=== PATIENT | male | born 1955 | race Caucasian/White ===

== ENCOUNTER 2016-12-06 16:49 | Observation (INO) | payer MEDICARE, OTHER ==
--- NOTE | ~2016-12-06 | OP ---
Record Of Operation [facility] [address] [place]. [address] NAME: CAIO ALMONTE : 53 STATUS : DIS Shira PAT#: [id number] AGE: 61 ADM/REG DATE : 12/06/16 MR#: [id number] REPORT SERV DATE: 12/08/16 DICTATED BY: JOEL NARAYANAN DATE: 12/08/16 REPORT STATUS : Draft TRANSCRIBED BY: MODL DATE: 12/08/16 DATE OF PROCEDURE: 12/07/2016 PREOPERATIVE DIAGNOSIS: Acute cholecystitis with cholelithiasis. POSTOPERATIVE DIAGNOSIS: Acute cholecystitis with cholelithiasis. PROCEDURE: Laparoscopic cholecystectomy (2-site). SURGEON: Joel Narayanan M.D. DESCRIPTION OF OPERATIVE PROCEDURE: The patient was brought to the operating suite, placed in supine position, underwent satisfactory general endotracheal anesthesia without incident. The skin of the abdomen was scrubbed, prepped, and draped in the usual sterile fashion. 0.5% Marcaine with epinephrine utilized as supplemental local anesthesia. Initially, an infraumbilical incision was performed dissecting through skin and subcutaneous tissues to the umbilical fascia. This was grasped with Arelis clamps and elevated, and a disposable Veress insufflation needle was inserted through the umbilicus into the peritoneal cavity following which a rigid forward-viewing 10 mm laparoscope was inserted. Visualization of the intraabdominal parietes revealed no evidence of injury from initial insufflation or puncture. Cursory examination of pelvis was normal. Attention was turned to the upper abdomen where additional 5 mm trocar was placed right of falciform ligament. An additional 5 mm grasping instrument inserted through the umbilicus, not in the umbilical trocar. The gallbladder was visualized and it was acutely inflamed and edematous but was able to be grasped and elevated. It appeared to contain numerous stones that could be seen through the gallbladder wall in outline. Dissection supplemented with irrigation of the triangle of Calot was successful and skeletonizing cystic duct, cystic duct-common duct junction as well as cystic artery. Both these structures were controlled with multiple applications a Weck polymer clip system and divided, then using spatula cautery dissection, the peritoneal attachments to the gallbladder and liver were divided and the gallbladder was removed from subhepatic space. An endo retrieval pouch was introduced through the umbilical trocar. Gallbladder was placed inside this pouch and then slated for removal. The camera was switched to the 5 mm epigastric port and then the endo retrieval pouch was withdrawn through the umbilicus removing the umbilical trocar. Upper abdominal trocar was removed. No muscular bleeding was noted. The bag was opened. The gallbladder was morcellated very tedious. All of the solid stones were removed. Record Of Operation [facility] [address] [place]. [address] NAME: CAIO ALMONTE : 53 STATUS : DIS Shira PAT#: [id number] AGE: 61 ADM/REG DATE : 12/06/16 MR#: [id number] REPORT SERV DATE: 12/08/16 DICTATED BY: JOEL NARAYANAN DATE: 12/08/16 REPORT STATUS : Draft TRANSCRIBED BY: YAMILKA DATE: 12/08/16 The patient tolerated the procedure well and was returned to PACU in stable condition. At the termination procedure, sponge, needle, lap, and instrument counts were correct x3. ESTIMATED BLOOD LOSS: Less than 15 mL. SUMMER/YAMILKA Joel Narayanan M.D. / [id number] CC: Geena Champagne TINA
--- NOTE | ~2016-12-06 | HP ---
History And Physical [facility] [id number] [place]. [address] NAME: CAIO ALMONTE : 53 STATUS : DIS Shira PAT#: [id number] AGE: 61 ADM/REG DATE : 12/06/16 MR#: [id number] REPORT SERV DATE: 12/07/16 DICTATED BY: JOEL NARAYANAN DATE: 12/07/16 REPORT STATUS : Draft TRANSCRIBED BY: YAMILKA DATE: 12/07/16 DATE OF ADMISSION: 12/06/2016 REASON FOR EXAMINATION: Acute cholecystitis with cholelithiasis. HISTORY: A 61-year-old mentally impaired, white male who was brought to the ED due to his caregiver/conservator found him on the floor in the men's room at the local [facility]. The patient is under the care of this conservator and lives with another mentally impaired individual in a room in this conservators' house. They usually go grocery shopping on Thursday and when he was noted to spend an inordinate amount of time in the men's room, the conservator asked a male patron to enter the restroom where the patient was found on the floor. He was subsequently transported to the ED here at [facility] for further evaluation and treatment. Past history is that the patient is retired from the [employer] center in [place]. As previously stated, he is mentally impaired but he is quite functional and the conservator says that he can be left by himself for up to 4 hours at a time without problems. SOCIAL HISTORY: He is a nonsmoker, nondrinker. PAST MEDICAL HISTORY: The patient had arthroscopic right knee surgery six or eight years ago without problems and has done well from that, and neurofibromatosis. HOME MEDICATIONS: Include Tylenol 500 mg every six hours as needed, albuterol inhaler two puffs twice a day, calcium citrate tablet plus vitamin D one b.i.d., calcium 10,000 units weekly, docusate sodium 100 mg capsule a day, Lamictal 150 mg b.i.d., Xalatan ophthalmic drops at bedtime to both eyes, Singulair 10 mg at bedtime, Zocor 10 mg at bedtime, Lotrimin spray topical to feet daily and another Formula 3 to toenails daily for fungus. LABORATORY DATA: WBCs are 13.4 thousand, H and H 16.5 and 49.4, no left shift. Glucose 127, albumin 3.2. Bilirubin and alkaline phosphatase within normal range as well as transaminases. Imaging consisted a CT scan shows mild thickening of the gallbladder wall with no stones identified. There is a moderate-sized left inguinal hernia containing a nonobstructed loop of small bowel. Ultrasound imaging shows thickened gallbladder wall 6 mm with echogenic shadowing stones present, common bile duct normal; all suggestive of acute cholecystitis. PHYSICAL EXAMINATION: GENERAL: The patient is a pleasant male. He answers questions reasonably appropriately. His speech is a little bit difficult to understand. HEENT: Examination shows evidence of skin lesions in soft polypoid epidermal thickening consistent with a history of neurofibromatosis. CARDIOVASCULAR: Regular rate and rhythm. CHEST: Clear bilaterally. ABDOMEN: Shows no distention. He has no hepatosplenomegaly or masses. There is no abdominal wall hernia. He elicit some discomfort to deep palpation. History And Physical [address] [address] NAME: CAIO ALMONTE : 53 STATUS : DIS Shira PAT#: [id number] AGE: 61 ADM/REG DATE : 12/06/16 MR#: [id number] REPORT SERV DATE: 12/07/16 DICTATED BY: JOEL NARAYANAN DATE: 12/07/16 REPORT STATUS : Draft TRANSCRIBED BY: YAMILKA DATE: 12/07/16 AND RECTAL: Not performed. EXTREMITIES: Again show evidence of neurofibromatosis. IMPRESSION: Acute cholecystitis, cholelithiasis. PLAN: I talked with the patient's caregiver and him about the risks and benefits of anesthesia and surgery. I have recommended urgent laparoscopic cholecystectomy, possible open cholecystectomy. We will proceed with that at 0930 hours on 12/07/2016. WR/YAMILKA Joel Narayanan M.D. / [id number] CC: Geena Champagne Tina
[2016-12-06 11:20] LABS: BASOPHILS 0.1 %; BASOPHILS ABSOLUTE 0.02 10/3/uL (0.0-0.16); EOSINOPHILS 1.5 %; EOSINOPHILS ABSOLUTE 0.22 10/3/uL (0.0-0.53); ER CBC TAT 0 Hrs 05 Mins; HEMOGLOBIN 18.8 g/dL (13.6-17.8); IMMATURE GRANULOCYTES 0.3 %; IMMATURE GRANULOCYTES ABSOLUTE 0.04 10/3/uL (0.0-0.11); LYMPHOCYTES 7.9 %; LYMPHOCYTES ABSOLUTE 1.17 10/3/uL (0.67-4.30); MEAN CORPUS HGB CONC 34.1 g/dL (32.0-36.0); MEAN CORPUSCULAR HEMOGLOB 30.4 pg (26.0-34.0); MEAN CORPUSCULAR VOLUME 89.2 fL (80-100); MONOCYTES 6.8 %; MONOCYTES ABSOLUTE 1.01 10/3/uL (0.21-1.20); NEUTROPHILS 83.4 %; NEUTROPHILS ABSOLUTE 12.29 10/3/uL (2.02-8.40); PLATELET COUNT 200 10/3/uL (150-400); RED CELL COUNT 6.19 10/6/uL (4.7-6.1); WHITE BLOOD CELLS 14.8 10/3/uL (4.5-10.5)
[2016-12-06 11:21] LABS: HEMATOCRIT 55.2 % (40.0-51.0); MANUAL DIFF NO %
[2016-12-06 11:25] LABS: ASCORBIC ACID (UR NOT ORDER) NEG (NEG); BILIRUBIN, URINE NEGATIVE (NEG); ER URINALYSIS TAT 0 Hrs 10 Mins; KETONE, URINE TRACE MG/DL (NEG); LEUKOCYTE ESTERASE(NOT OR NEG (NEG); NITRITE (URINE) NEG (NEG); WBC (NOT ORDERED) (RFLEX) 1 (0-5)
[2016-12-06 11:35] LABS: ALKALINE PHOSPHATASE 106 U/L (45-117); BUN (BLOOD UREA NITROGEN) 16 MG/DL (6-23); CALCIUM, SERUM 9.5 MG/DL (8.5-10.4); CHLORIDE, SERUM 104 MMOL/L (96-112); CO2 (CARBON DIOXIDE) 33 MMOL/L (24-34); CREATININE 1.31 MG/DL (0.70-1.30); GFR AFRICAN AMERICAN 67 ML/MIN (>=60); GFR NON AFRICAN AMERICAN 58 ML/MIN (>=60); GLOBULIN 3.9 G/DL (2.5-4.1); GLUCOSE, SERUM 127 MG/DL (60-99); POTASSIUM, SERUM 4.9 MMOL/L (3.5-5.3); SGOT(AST) 11 U/L (5-40); SGPT(ALT) 30 U/L (5-65); SODIUM, SERUM 143 MMOL/L (135-148); TOTAL BILIRUBIN 0.9 MG/DL (0-1.2); TOTAL PROTEIN 7.9 G/DL (6.0-8.5)
[~2016-12-06 16:49] MED LIST: ALLEGRA180 PO; AMB5 PO; CELEXA20 PO; COSOPT OPH; DSS PO; LAMICTAL10 PO; NASONEX NAS; PROAIR HFA INH; SINGULAIR1 PO; ZOCOR5 MG PO
[2016-12-06] MEDS ORDERED: PROAIR HFA INH (16:58)
[2016-12-06] MEDS ORDERED: D.O.S.100 MG PO (16:59)
[2016-12-06] MEDS ORDERED: SINGULAIR1 PO (16:59)
[2016-12-06] MEDS ORDERED: ZOCOR10 PO (16:59)
[2016-12-06] MEDS ORDERED: MAXIMUM D3 PO (16:59)
[2016-12-06] MEDS ORDERED: CITRACAL PO (17:01)
[2016-12-06] MEDS ORDERED: LOTRIMIN TOP (17:03)
[2016-12-06] MEDS ORDERED: XALAT OPH (17:04)
[2016-12-06] MEDS ORDERED: LAMICTAL150 MG PO (17:04)
[2016-12-06] MEDS ORDERED: ACET500CAP PO (17:05)
[2016-12-06] MEDS ORDERED: FORMULA TOP (17:06)
[2016-12-07 06:16] LABS: BASOPHILS 0.1 %; BASOPHILS ABSOLUTE 0.02 10/3/uL (0.0-0.16); EOSINOPHILS 1.9 %; EOSINOPHILS ABSOLUTE 0.25 10/3/uL (0.0-0.53); HEMOGLOBIN 16.5 g/dL (13.6-17.8); IMMATURE GRANULOCYTES 0.2 %; IMMATURE GRANULOCYTES ABSOLUTE 0.03 10/3/uL (0.0-0.11); LYMPHOCYTES 15.4 %; LYMPHOCYTES ABSOLUTE 2.06 10/3/uL (0.67-4.30); MEAN CORPUS HGB CONC 33.4 g/dL (32.0-36.0); MEAN CORPUSCULAR HEMOGLOB 29.8 pg (26.0-34.0); MEAN CORPUSCULAR VOLUME 89.2 fL (80-100); MONOCYTES 10.4 %; MONOCYTES ABSOLUTE 1.39 10/3/uL (0.21-1.20); NEUTROPHILS ABSOLUTE 9.65 10/3/uL (2.02-8.40); PLATELET COUNT 205 10/3/uL (150-400); RBC DISTRIBUTION WIDTH 14.3 % (12.0-16.0); RED CELL COUNT 5.54 10/6/uL (4.7-6.1); WHITE BLOOD CELLS 13.4 10/3/uL (4.5-10.5)
[2016-12-07 06:17] LABS: HEMATOCRIT 49.4 % (40.0-51.0); MANUAL DIFF NO %
[2016-12-07 06:27] LABS: ALBUMIN 3.2 G/DL (3.5-5.0); ALKALINE PHOSPHATASE 94 U/L (45-117); BUN (BLOOD UREA NITROGEN) 9 MG/DL (6-23); CALCIUM, SERUM 8.7 MG/DL (8.5-10.4); CHLORIDE, SERUM 106 MMOL/L (96-112); CO2 (CARBON DIOXIDE) 26 MMOL/L (24-34); CREATININE 1.12 MG/DL (0.70-1.30); GFR AFRICAN AMERICAN 81 ML/MIN (>=60); GFR NON AFRICAN AMERICAN 70 ML/MIN (>=60); GLOBULIN 3.2 G/DL (2.5-4.1); GLUCOSE, SERUM 127 MG/DL (60-99); SGOT(AST) 6 U/L (5-40); SGPT(ALT) 18 U/L (5-65); SODIUM, SERUM 143 MMOL/L (135-148); TOTAL BILIRUBIN 0.9 MG/DL (0-1.2); TOTAL PROTEIN 6.4 G/DL (6.0-8.5)
[2016-12-07] MEDS ORDERED: NORCO1 TA1 PO (15:36)
[2017-01-14] MEDS ORDERED: LAM250 PO (12:47)
[2017-01-14] MEDS ORDERED: CICLOPIROX 8% TOP (12:57)
[2017-03-10] MEDS ORDERED: VITAMIN D1000 UNI1 PO (12:06)
[2017-03-10] MEDS ORDERED: TOLNAFTATE EX (12:14)
== END 2016-12-07 17:07 | disposition home health service (06) ==
LOC: ER 16:49 → 5SO 16:57
PROVIDERS: Physician Assistant; Specialist
PROC: 0FT44ZZ Resection of Gallbladder, Percutaneous Endoscopic Approach (ICD-10-PCS; principal; 2016-12-07 09:15)
DX: K80.10 Calculus of gallbladder with chronic cholecystitis without obstruction (principal); I10 Essential (primary) hypertension; G40.909 Epilepsy, unspecified, not intractable, without status epilepticus; E78.00 Pure hypercholesterolemia, unspecified; J45.909 Unspecified asthma, uncomplicated; Z86.69 Personal history of other diseases of the nervous system and sense organs; Z79.899 Other long term (current) drug therapy; Z98.890 Other specified postprocedural states
CPT/HCPCS: 71010; 74176; 76705; 80053; 81001; 83690; 85025; 88304; 93005; 94640; 96374; 96375; 96376; 99285; A9270-GY; G0378; J0690; J1885; J2250; J2405; J2710; J3010

== ENCOUNTER 2017-01-20 08:55 | Day surgery (SDC) | payer MEDICARE, BC, OTHER ==
[2017-01-16 09:36] LABS: HEMATOCRIT 53.7 % (40.0-51.0)
[2017-01-16 09:50] LABS: BUN (BLOOD UREA NITROGEN) 8 MG/DL (6-23); CHLORIDE, SERUM 103 MMOL/L (96-112); CREATININE 1.28 MG/DL (0.70-1.30); GFR AFRICAN AMERICAN 69 ML/MIN (>=60); GFR NON AFRICAN AMERICAN 60 ML/MIN (>=60); POTASSIUM, SERUM 4.3 MMOL/L (3.5-5.3); SODIUM, SERUM 141 MMOL/L (135-148)
[2017-01-16 09:51] LABS: CALCIUM, SERUM 9.7 MG/DL (8.5-10.4); CO2 (CARBON DIOXIDE) 31 MMOL/L (24-34); GLUCOSE, SERUM 76 MG/DL (60-99)
--- NOTE | ~2017-01-20 | OP ---
Record Of Operation [facility] [address] [place]. [address] NAME: CAIO ALMONTE : 53 STATUS : [facility]#: [id number] AGE: 61 ADM/REG DATE : 01/20/17 MR#: [id number] REPORT SERV DATE: 01/21/17 DICTATED BY: TUAN ESCOBEDO DATE: 01/21/17 REPORT STATUS : Draft TRANSCRIBED BY: MODL DATE: 01/21/17 DATE OF PROCEDURE: 01/20/2017 DICTATED BY: Dominick Esquivel. PROCEDURE PERFORMED: Open left inguinal hernia repair with mesh. PREOPERATIVE DIAGNOSIS: Left inguinal hernia. POSTOPERATIVE DIAGNOSIS: Left inguinal hernia. SURGEON: Tuan Escobedo M.D. RESIDENT SURGEON: Dr. Dominick Esquivel. ANESTHESIA: General anesthetic as well as local anesthetic. COMPLICATIONS: None. ESTIMATED BLOOD LOSS: 10 mL. OPERATIVE PROCEDURE IN DETAIL: The patient was brought to the operating room and underwent general anesthesia and endotracheal intubation. In the supine position, the left groin was prepped and draped in a sterile surgical fashion. Scalpel was used to make an oblique incision parallel and superior to the left inguinal ligament. This was deepened through Camper's and Lin's fascia using electrocautery down to the external oblique aponeurosis. The external oblique was opened in the direction of its fibers through the external ring using a scalpel followed by Metzenbaum scissors. The ilioinguinal nerve was identified and protected from injury. The inguinal floor was exposed by creating superior and inferior flaps of the external oblique. The spermatic cord was identified and mobilized at the pubic tubercle and isolated using a Esperance drain. This was done by dissecting the cremasteric fibers from the cord. The anteromedial aspect of the cord was examined and indirect hernia sac was identified. The sac was carefully dissected free of the cord down to the level of the internal ring. The vas deferens was identified and protected during this. The hernia sac was opened and the contents were reduced into the peritoneal cavity. The sac was then closed using 0 silk in a pursestring fashion. This was also followed by high ligation and the stick tie using a 0 silk suture ligated. Any redundant sac was excised using electrocautery. Stump of the sac was checked for hemostasis and allowed to retract into the abdomen. A Bard mesh plug, large, was fashioned to restore the normal anatomy of the internal ring. The plug was sutured into place using Vicryl sutures. The floor of the inguinal canal was assessed visually and found to be intact. To repair the floor, a Parietex mesh 6 inches x 4 inches was cut to size. Starting at the pubic tubercle, the mesh was secured flat with interrupted Vicryl sutures to the reflected edge of the inguinal ligament inferiorly, the conjoint tendons superiorly. The ends of the patch were draped around the cord structures at the level of the internal ring. The Gregory drain was removed and the cord itself returned to its anatomic location above the mesh. Hemostasis was Record Of Operation [address] [place]. [address] NAME: CAIO ALMONTE : 53 STATUS : [facility]#: [id number] AGE: 61 ADM/REG DATE : 01/20/17 MR#: [id number] REPORT SERV DATE: 01/21/17 DICTATED BY: TUAN ESCOBEDO DATE: 01/21/17 REPORT STATUS : Draft TRANSCRIBED BY: YAMILKA DATE: 01/21/17 achieved using electrocautery. The external oblique aponeurosis was reapproximated using a continuous 2-0 PDS suture. Lin's fascia was then closed with several interrupted 3-0 Vicryl sutures and the skin was closed using a 4-0 subcuticular continuous Monocryl suture. The operative field was cleaned and dried. Telfa and Tegaderm were then applied. The testes were then gently pulled down into its anatomic position in the scrotum. There were no intraoperative complications and estimated blood loss was 10 mL. All instrument and sponge counts were correct. The patient was extubated and transferred to the PACU in stable condition. MARY/YAMILKA Tuan Escobedo M.D. / [id number] CC: Geena Nolan
[~2017-01-20 08:55] MED LIST changes: +ACET500CAP PO; +CICLOPIROX 8% TOP; +CITRACAL PO; +D.O.S.100 MG PO; +FORMULA TOP; +LAM250 PO; +LAMICTAL150 MG PO; +LOTRIMIN TOP; +MAXIMUM D3 PO; +NORCO1 TA1 PO; +XALAT OPH; +ZOCOR10 PO
[2017-03-10] MEDS ORDERED: VITAMIN D1000 UNI1 PO (12:06)
[2017-03-10] MEDS ORDERED: TOLNAFTATE EX (12:14)
== END 2017-01-20 18:02 | disposition home or self-care (01) ==
LOC: SDC 08:55
PROVIDERS: Specialist
PROC: 0YU60JZ Supplement Left Inguinal Region with Synthetic Substitute, Open Approach (ICD-10-PCS; principal; 2017-01-20 10:30)
DX: K40.90 Unilateral inguinal hernia, without obstruction or gangrene, not specified as recurrent (principal); H40.9 Unspecified glaucoma; I10 Essential (primary) hypertension; J45.909 Unspecified asthma, uncomplicated; F41.9 Anxiety disorder, unspecified; F32.9 Major depressive disorder, single episode, unspecified; R62.50 Unspecified lack of expected normal physiological development in childhood; Z90.49 Acquired absence of other specified parts of digestive tract; Z98.890 Other specified postprocedural states; Z79.899 Other long term (current) drug therapy
CPT/HCPCS: 80048; 85014; 85018; 88302; 93005; A9270-GY; C1781; J0690; J1170; J1885; J2250; J2270; J2405; J2710; J3010

== ENCOUNTER 2017-03-16 11:43 | Day surgery (SDC) | payer MEDICARE, BC, OTHER ==
--- NOTE | ~2017-03-16 | EGD ---
EGD REPORT [facility] [address] [place] [address] NAME: CAIO ALMONTE : 53 STATUS : REG [facility]#: [id number] AGE: 61 ADM/REG DATE : 03/16/17 MR#: [id number] REPORT SERV DATE: 03/16/17 DICTATED BY: FELIPE MERCEDES DATE: 03/16/17 REPORT STATUS : Draft TRANSCRIBED BY: [facility] DATE: 03/16/17 Endoscopy Center Patient Name: Caio Almonte Date of : 1955 Attending MD: FELIPE MERCEDES MD Procedure Date No Time: 03/16/2017 Procedure: Colonoscopy Indications: Personal history of colonic polyps Referring MD: JEANMARIE NEWMAN Medicines: Propofol per Anesthesia Complications: No immediate complications. Estimated blood loss: None. Procedure: Pre-Anesthesia Assessment: - After reviewing the risks and benefits, the patient was deemed in satisfactory condition to undergo the procedure. - Prior to the procedure, a History and Physical was performed, and patient medications and allergies were reviewed. The patient's tolerance of previous anesthesia was also reviewed. The risks and benefits of the procedure and the sedation options and risks were discussed with the patient. All questions were answered, and informed consent was obtained. Prior Anticoagulants: The patient has taken no previous anticoagulant or antiplatelet agents. ASA Grade Assessment: II - A patient with mild systemic disease. After reviewing the risks and benefits, the patient was deemed in satisfactory condition to undergo the procedure. After I obtained informed consent, the scope was passed under direct vision. Throughout the procedure, the patient's blood pressure, pulse, and oxygen saturations were monitored continuously. The CF [id number] was introduced through the anus and advanced to the cecum, identified by appendiceal orifice and ileocecal valve. The colonoscopy was performed without difficulty. The ileocecal valve and appendiceal orifice were photographed. The patient tolerated the procedure well. The quality of the bowel preparation was excellent. The bowel preparation used was split dose polyethylene glycol (PEG). Scope withdrawal time was greater than 10 minutes. Findings: The perianal and digital rectal examinations were normal. Pertinent negatives include normal sphincter tone. Non-bleeding internal hemorrhoids were found during retroflexion and EGD REPORT [address] [address] NAME: CAIO ALMONTE : 53 STATUS : REG [facility] PAT#: [id number] AGE: 61 ADM/REG DATE : 03/16/17 MR#: [id number] REPORT SERV DATE: 03/16/17 DICTATED BY: FELIPE MERCEDES DATE: 03/16/17 REPORT STATUS : Draft TRANSCRIBED BY: [employer] DATE: 03/16/17 were small and Grade I (internal hemorrhoids that do not prolapse). A few small-mouthed diverticula were found in the sigmoid colon. Two sessile polyps were found at the hepatic flexure. The polyps were diminutive in size. These polyps were removed with a cold snare. Resection and retrieval were complete. Estimated blood loss: none. Multiple sessile polyps were found in the transverse colon. The polyps were diminutive in size. These polyps were removed with a cold biopsy forceps. Resection and retrieval were complete. Estimated blood loss: none. The exam was otherwise without abnormality. Impression: - Non-bleeding internal hemorrhoids. - Mild diverticulosis in the sigmoid colon. - Two diminutive polyps at the hepatic flexure. Resected and retrieved. - Multiple diminutive polyps in the transverse colon. Resected and retrieved. - The examination was otherwise normal. Recommendation: - Discharge patient to home (ambulatory). - High fiber diet indefinitely. - Continue present medications. - Await pathology results. - Repeat colonoscopy in 5 years for surveillance. - Patient has a contact number available for emergencies. The signs and symptoms of potential delayed complications were discussed with the patient. Return to normal activities tomorrow. Written discharge instructions were provided to the patient. Procedure Code(s): --- Professional --- 22875, Colonoscopy, flexible, proximal to splenic flexure; with removal of tumor(s), polyp(s), or other lesion(s) by snare technique 63290, 59, Colonoscopy, flexible, proximal to splenic flexure; with biopsy, single or multiple Diagnosis Code(s): --- Professional --- K64.0, First degree hemorrhoids K57.30, Diverticulosis of large intestine without perforation or abscess without bleeding D12.3, Benign neoplasm of transverse colon Z86.010, Personal history of colonic polyps CPT copyright 2013 [employer]. All rights reserved. EGD REPORT [facility] [address]. [address] NAME: CAIO ALMONTE : 53 STATUS : REG [facility]#: [id number] AGE: 61 ADM/REG DATE : 03/16/17 MR#: [id number] REPORT SERV DATE: 03/16/17 DICTATED BY: FELIPE MERCEDES DATE: 03/16/17 REPORT STATUS : Draft TRANSCRIBED BY: [employer] DATE: 03/16/17 The codes documented in this report are preliminary and upon orthopedic coder review may be revised to meet current compliance requirements. FELIPE MERCEDES MD 03/16/2017 2:37 PM This report has been signed electronically. Number of Addenda: 0 Note Initiated On: 03/16/2017 2:02 PM Scope Withdrawal Time 0 hours 10 minutes 47 seconds [address] [place] [address]
[~2017-03-16 11:43] MED LIST changes: +TOLNAFTATE EX; +VITAMIN D1000 UNI1 PO
== END 2017-03-16 23:59 | disposition home or self-care (01) ==
LOC: DMU 11:43
PROVIDERS: Internal Medicine Gastroenterology
PROC: 0DBK8ZZ Excision of Ascending Colon, Via Natural or Artificial Opening Endoscopic (ICD-10-PCS; principal; 2017-03-16 13:30)
PROC: 0DBL8ZZ Excision of Transverse Colon, Via Natural or Artificial Opening Endoscopic (ICD-10-PCS; 2017-03-16 13:30)
DX: K63.5 Polyp of colon (principal); K64.0 First degree hemorrhoids; K57.30 Diverticulosis of large intestine without perforation or abscess without bleeding; Z86.010 Personal history of colon polyps; Q85.00 Neurofibromatosis, unspecified; R62.50 Unspecified lack of expected normal physiological development in childhood; J45.909 Unspecified asthma, uncomplicated; G40.909 Epilepsy, unspecified, not intractable, without status epilepticus; E78.00 Pure hypercholesterolemia, unspecified; Z79.899 Other long term (current) drug therapy
CPT/HCPCS: 88305